=== PATIENT | female | born 1985 | race African-American/Black ===

== ENCOUNTER 2021-06-26 17:09 | Emergency (ER) | payer OTHER ==
[~2021-06-26] VITALS: Ht 160 cm; Wt 74.8 kg
[~2021-06-26 17:09] MED LIST: AMOXICILLIN 50500 MG PO; IBUPROFEN 800800 M1 PO; KEFLEX500 MG PO; ULTRAM 50MG TAB50 MG PO; ZOFRAN ODT4 MG PO
[2021-06-26 17:40] VITALS: BP 146/94
== END 2021-06-26 17:47 | disposition home or self-care (01) ==
LOC: ER 17:09
DX: S61.432A Puncture wound without foreign body of left hand, initial encounter (principal); F12.90 Cannabis use, unspecified, uncomplicated; Z90.49 Acquired absence of other specified parts of digestive tract; Z98.890 Other specified postprocedural states; W26.0XXA Contact with knife, initial encounter; Y93.89 Activity, other specified; Y92.89 Other specified places as the place of occurrence of the external cause; Y99.9 Unspecified external cause status